=== PATIENT | male | born 1940 | race Caucasian/White ===

== ENCOUNTER → 2017-08-16 | Outpatient (CLI) | payer MEDICARE, OTHER | LOC: M RAD 09:50 | DX: Z12.2 Encounter for screening for malignant neoplasm of respiratory organs (principal); R91.8 Other nonspecific abnormal finding of lung field; F17.210 Nicotine dependence, cigarettes, uncomplicated; J44.9 Chronic obstructive pulmonary disease, unspecified; I27.81 Cor pulmonale (chronic) | CPT/HCPCS: G0297 ==

== ENCOUNTER 2018-08-17 19:21 | Inpatient (IN) | payer MEDICARE, OTHER ==
[~2018-08-17] VITALS: Ht 180.3 cm; Wt 79.5 kg
[2018-08-17] MEDS ORDERED: SPIR1CAP INH ×2 (19:43→21:04)
[2018-08-17] MEDS ORDERED: CLOB05OI TOP (19:43)
[2018-08-17] MEDS ORDERED: LEVOTAB10 PO ×2 (19:43→21:04)
[2018-08-17] MEDS ORDERED: MONT10TA2 PO ×2 (19:43→21:04)
[2018-08-17] MEDS ORDERED: SPIR1TAB34 (19:43)
[2018-08-17] MEDS ORDERED: ATOR40TA75 PO ×2 (19:43→21:02)
[2018-08-17] MEDS ORDERED: AVAP300T23 PO (19:43)
--- NOTE | 2018-08-17 20:01 | REP ---
Clinical: Acute chest pain . Comparison: 02/06/2013 . Findings: The mediastinum and cardiac silhouette are stable and within normal limits for portable technique. The lung arnold demonstrate chronic-appearing changes without acute consolidation, effusion, or pneumothorax. Skeletal structures are intact. Impression: No acute cardiopulmonary process appreciated. Electronically Signed by Иван Mcmahon MD 08/17/2018 07:53 P
[2018-08-17 20:24] LABS: BASO # 0.1 10^3/uL (0.0-0.2); BASO % 0.6 % (0.0-1.0); EOS # 0.5 10^3/uL (0.0-0.50); EOS % 4.1 % (0.0-3.0); HEMOGLOBIN 13.8 g/dl (13.5-17.5); LYMPH # 3.3 10^3/uL (1.5-4.5); LYMPH % 30.6 % (24.0-44.0); MEAN CORPUSCULAR HEMOGLOBIN 29.1 pg (27.0-33.0); MEAN CORPUSCULAR HGB CONC 32.1 g/dl (32.0-36.5); MEAN CORPUSCULAR VOLUME 90.7 fl (80.0-96.0); MONO # 0.9 10^3/uL (0.0-0.8); MONO % 8.2 % (0.0-5.0); NEUTROPHILS # 6.1 10^3/uL (1.8-7.7); NEUTROPHILS % 55.9 % (36.0-66.0); PLATELET COUNT, AUTOMATED 231 10^3/uL (150-450); RED BLOOD COUNT 4.74 10^6/uL (4.30-6.10); WHITE BLOOD COUNT 10.9 10^3/uL (4.0-10.0)
[2018-08-17 20:53] LABS: BLOOD UREA NITROGEN 33 MG/DL (7-18); CALCIUM LEVEL 8.2 MG/DL (8.8-10.2); CARBON DIOXIDE LEVEL 26 MEQ/L (21-32); CHLORIDE LEVEL 109 MEQ/L (98-107); CPK CREATINE PHOSPHOKINASE 97 U/L (39-308); CREATININE FOR GFR 1.55 MG/DL (0.70-1.30); GLOMERULAR FILTRATION RATE 46.6 (>42); GLUCOSE, FASTING 85 MG/DL (70-100); MAGNESIUM LEVEL 2.4 MG/DL (1.8-2.4); MB/CK RELATIVE INDEX 3.09 (< OR =4); POTASSIUM SERUM 3.9 MEQ/L (3.5-5.1); SODIUM LEVEL 142 MEQ/L (136-145); TROPONIN I < 0.02 NG/ML (< 0.10)
[2018-08-17] MEDS ORDERED: CLOB05OI EXT (21:02)
[2018-08-17] MEDS ORDERED: IRBE300T10 PO (21:04)
[2018-08-17] MEDS ORDERED: SPIR1TAB34 PO (21:04)
[2018-08-17] MEDS ORDERED: MOME50SP2 (21:04)
[2018-08-17] MEDS ORDERED: ARTI99.0 OU (21:04)
[2018-08-17] MEDS: LR 1,000 ML IV SCH (22:23)
[2018-08-17] MEDS: ATORVASTATIN 20 MG TAB PO SCH (22:42)
[2018-08-17] MEDS ORDERED: ALBUTEROL SULFATE 2.5 MG/0.5 ML INH NEB SOLN NEB PRN (23:00)
[2018-08-18] VITALS (11 sets, daily range): BP systolic 117–160; BP diastolic 66–89
[2018-08-18 03:39] LABS: HEMATOCRIT 39.5 % (42.0-52.0); HEMOGLOBIN 12.9 g/dl (13.5-17.5); MEAN CORPUSCULAR HEMOGLOBIN 29.4 pg (27.0-33.0); MEAN CORPUSCULAR HGB CONC 32.7 g/dl (32.0-36.5); PLATELET COUNT, AUTOMATED 208 10^3/uL (150-450); RED BLOOD COUNT 4.39 10^6/uL (4.30-6.10)
[2018-08-18 03:59] LABS: INR 1.06; PROTHROMBIN TIME 13.9 SECONDS (12.1-14.4)
[2018-08-18 04:00] LABS: PARTIAL THROMBOPLASTIN TIME 29.8 SECONDS (25.4-37.6)
[2018-08-18 04:07] LABS: BLOOD UREA NITROGEN 28 MG/DL (7-18); CALCIUM LEVEL 8.1 MG/DL (8.8-10.2); CARBON DIOXIDE LEVEL 29 MEQ/L (21-32); CHLORIDE LEVEL 110 MEQ/L (98-107); GLOMERULAR FILTRATION RATE 48.4 (>42); GLUCOSE, FASTING 89 MG/DL (70-100); MAGNESIUM LEVEL 2.3 MG/DL (1.8-2.4); POTASSIUM SERUM 3.9 MEQ/L (3.5-5.1); SODIUM LEVEL 144 MEQ/L (136-145); TROPONIN I < 0.02 NG/ML (< 0.10)
[2018-08-18] MEDS ORDERED: VANCOMYCIN HCL 1,000 MG, VIAL MATE ADAPTER 1 EACH in D5W 250 ML IV SCH (06:00)
[2018-08-18] MEDS ORDERED: HEPARIN SOD (PORCINE) 5000 UNITS/ML VIAL SC SCH (06:00)
--- NOTE | 2018-08-18 07:33 | HPE ---
DATE OF ADMISSION: 08/17/2018 CHIEF COMPLAINT: Dizziness, near syncope. HISTORY OF PRESENT ILLNESS: The patient is a 77-year-old male with significant past medical history of hypertension, chronic obstructive pulmonary disease (COPD), hyperlipidemia, who presents to the emergency room with near syncope, dizziness. He does have an event monitor in place. He has been having this issue chronically for the past several months. He was set up with an event monitor by his primary care physician. He is followed by Dr. Turpin of cardiology. The Holter monitor recorded a 6 second sinus pause during his dizziness and near syncopal episode. He denies any chest pain, shortness of breath, cough, fevers, chills, abdominal pain. He has no known cardiac history. PAST MEDICAL HISTORY: See history of present illness. PAST SURGICAL HISTORY: Cholecystectomy. Left testicle and prostatectomy. ALLERGIES: 1. PENICILLIN. 2. SULFA ANTIBIOTICS. SOCIAL HISTORY: He is a current smoker, half a pack per day. Denies alcohol or illicit drug. FAMILY HISTORY: Heart disease and cerebrovascular accident (CVA). REVIEW OF SYSTEMS: A 12 point review of systems was completed, all of which were negative except those listed in the history of present illness. VITAL SIGNS ON ADMISSION: Temperature 96.9, pulse rate of 69, respirations are 18, blood pressure 163/78, satting at 97% on room air. PHYSICAL EXAMINATION: GENERAL: Well nourished, in no apparent distress. HEAD: Normocephalic, atraumatic. EYES: Extraocular movements are intact. Pupils equal, round, reactive to light. NECK: Supple. No jugular venous pressure (JVP). LUNGS: Clear to auscultation bilaterally. No crackles, wheezes, rales or rhonchi. CARDIOVASCULAR: Regular rate and rhythm. Normal S1 and S2. No murmurs, gallops, or rubs. ABDOMEN: Soft, nontender, nondistended. Positive bowel sounds. No rebound or guarding. EXTREMITIES: No pitting edema or calf tenderness. SKIN: Intact. No rashes, lesions or breakdowns. NEUROLOGICAL EXAM: Alert and oriented times three. No focal deficits appreciated on exam. LABS AND IMAGING COMPLETED IN THE EMERGENCY ROOM: White count of 10, hemoglobin and hematocrit of 13/43, platelet count of 231. BUN and creatinine of 33/1.55, baseline creatinine is unknown. Magnesium within normal limits. Troponin negative times one. Chest x-ray showed no acute disease. ASSESSMENT/PLAN: 1. Dizziness, near syncope. Secondary to episode of sinus arrest. Will rule out ACS with serial tropes, serial EKGs, telemetry. Rule out structural heart disease with echocardiogram. Will send Lyme serology. Will check electrolytes. The patient to have a pacemaker in the morning, nothing by mouth after midnight. Will leave pacemaker at the bedside. 2. For hypertension, continue Avapro. 3. For hyperlipidemia, continue Lipitor. 4. Supportive deep vein thrombosis (DVT) prophylaxis. Heparin subcu. 5. Gastrointestinal (GI) prophylaxis. Not indicated. 6. Diet. Nothing by mouth after midnight. MTDD
[2018-08-18] MEDS: TIOTROPIUM INHALER/CAPSULE (SPIRIVA) INH SCH (08:30)
[2018-08-18] MEDS: IRBESARTAN 150 MG TAB PO SCH (09:19)
[2018-08-18] MEDS: LR 1,000 ML IV SCH (09:19)
[2018-08-18] MEDS ORDERED: FLUTICASONE PROP 0.05% NASAL SPRAY 16 GM (FLONASE) NARES ONE (13:00)
--- NOTE | 2018-08-18 14:18 | ECGEPIP ---
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 Electronically Signed On 08-18-2018 14:18:29 EST by Sebastian Turpin
--- NOTE | 2018-08-18 14:18 | CR ---
DATE OF CONSULTATION: 08/17/2018 REFERRING PHYSICIAN: Dr. Jose Ramon Milligan, emergency room physician. HISTORY OF PRESENT ILLNESS: Mr. 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 He also has hypercholesterolemia and chronic obstructive pulmonary disease (COPD) and chronic kidney disease stage III. He reports that in the past 2-3 years, he has been having recurrent near fainting lasting about 5-10 seconds that occurs without warning in any position and typically occurs 2-3 times per year. He is not able to identify any provoking factors. There is no preceding palpitations, nausea, or vomiting. Shortly after recovering from presyncope, he sometimes feels very mild nausea but no abdominal discomfort. No syncope but he has come very close to syncope. He was recently placed on a 30-day event monitor at the request of his primary care provider because of these episodes of presyncope and earlier this evening, he had a symptomatic episode of near syncope recorded 08/17/2018 at 6:08 p.m. Eastern standard time whereby he had an episode of sinus arrest approximately 5 seconds (actually 4740 ms). He was instructed to go to the emergency room for admission because he would need a pacemaker. He is not on any medications to account for sinus node dysfunction. Since he quit alcohol, he is no longer bothered by palpitations. No exertional shortness of breath. No orthopnea or PND. He has occasional cough with small amounts of yellow sputum. No hemoptysis. No active leg edema. No pain, pressure, tightness, wheezing or heaviness in the chest, neck, jaw, upper extremities with or without exertion. No intermittent claudication. 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 Systemic hypertension. Hypercholesterolemia. Chronic obstructive pulmonary disease (COPD). Sinusitis. Carotid arthrosclerosis (mild to moderate plaque on carotid ultrasound 11/28/2013). Chronic kidney disease followed by Dr. Nathan Piper, localized edema followed by Dr. Piper. Status post cholecystectomy. Prior orchiectomy, prior prostatectomy. Bilateral cataract extractions with lens implants. ADVERSE DRUG REACTIONS: PENICILLIN (hives). SULFA (nausea). RELAFEN (nausea). BACLOFEN (nausea). BACTRIM (nausea). MEDICATIONS PRIOR TO ADMISSION: - spironolactone/hydrochlorothiazide 25/25 mg times half tablet daily - irbesartan 300 mg daily - atorvastatin 40 mg daily at bedtime - Flonase - cetirizine 5 mg daily at bedtime - Singulair 10 mg daily - Spiriva one inhalation daily FAMILY HISTORY: Father of cancer. Mother had a stroke. 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 . Currently smokes up to half a pack of cigarettes a day. No alcohol. REVIEW OF SYSTEMS: Wears glasses for reading. Decreased hearing and tinnitus. Cough with occasional yellowish sputum. Environmental allergies. Low back pain and sciatica. No anxiety, panic attacks or depression. All other 10 point review of systems otherwise negative. I shall summarize the patient's noninvasive cardiac testing. Treadmill exercise stress test, 07/20/2016 showed patient completing 10 minutes of standard Yo protocol achieving 13 METs and achieving a maximum heart rate of 134 BPM corresponding to 77% of age-predicted maximum. ECG portion was inconclusive due to failure to attain 85% of maximum age-predicted heart rate, but no ischemic changes were seen at the observed heart rate. The test was limited by dyspnea and leg fatigue. No chest pain or chest discomfort. Echocardiogram Doppler 07/19/2016 showed normal size of the aortic root at the level of the sinuses of Valsalva and proximal ascending aorta. Normal LV systolic function with LVEF 60-65% by visual estimate without regional wall motion abnormalities. Normal LV diastolic function for age. Mild left atrial dilatation by visual assessment. Mild aortic valve sclerosis of a 3-cusp aortic valve. Holter monitor 07/27/2016 showed frequent isolated PVCs (3938 isolated PVCs). No ventricular tachycardia or ventricular runs. Heart rate at that time ranged from 48-118 BPM with an average heart rate of 70 BPM. PHYSICAL EXAMINATION: Pleasant, elderly man who appears his chronologic age who is not in any respiratory distress. Appears to be normal body weight. . Height 71 inches. Weight 79.55 kg. BMI 24.5. Temperature 96.9. Pulse 58 (regular 810), respiratory rate 18, blood pressure 136/77 left arm sitting, oxygen saturation 96% on room air. No conjunctiva, pallor, scleral icterus or exanthematous. Multiple missing teeth and some dental fillings present. Oral mucosal is moist and without pallor or stenosis. Jugular venous pulsations were at 5 cm. Trachea midline. No palpable thyroid. No clubbing, nail bed cyanosis, or splinter hemorrhages. No skin lesion, skin pallor or icterus. Oriented to person, place and time. Mood and affect normal. Curvature of the spine normal. Gait was not tested as this patient is currently on bed rest because of presyncope and sinus arrest. Gross motor strength and tone are normal. No abnormal muscle atrophy, fasciculations, or tremors. Respiratory expansion effort was good. No crackles. Mild prolongation of expiration and some faint wheezes were present. No dullness to percussion. No palpable apex beat. No left parasternal heaves, thrills, or palpable heart sounds. First and second heart sounds are normal. No S3 or S4 or murmurs appreciated. Carotids are normal in volume and contour and without bruits. No palpable abdominal aorta. No abdominal bruits. Femoral pulses normal. Pedal pulses normal. No peripheral edema. No varicose veins. Abdomen was soft, nontender with normal bowel sounds. No hepatosplenomegaly or organomegaly. Liver span 12 cm in right midclavicular line. Stool for occult blood not indicated. INVESTIGATIONS: Laboratory work 08/17/2018 at 2013 hours is reviewed: WBC 10.9, hemoglobin 13.8, hematocrit 43.0, platelets 231. Sodium 142, potassium 3.9, chloride 109, CO2 26, BUN 33, creatinine 1.55. Estimated glomerular filtration rate 46.6. Glucose 85. Magnesium 2.4. CPK 97. CK-MB 3.0. Troponin I less than 0.02. I have independently visualized the patient's portable AP sitting chest x-ray acquired 08/17/2018 at 7:46 p.m. Cardiac silhouette appears to be of normal size and configuration despite the portable technique. Enlarged pulmonary arteries. No pulmonary vascular redistribution. No interstitial or alveolar edema. No pleural effusions. Chronic appearing fibrotic changes in the lung arnold. Electrocardiogram 08/17/2018 at 1958 hours shows sinus rhythm, 65 BPM, two way for the PVCs. Normal NV interval, otherwise within normal limits. ASSESSMENT AND PLAN: 1. Sick sinus syndrome symptomatic with recurrent presyncope with documentation of a symptomatic 5 second sinus arrest earlier today on a 30-day event monitor. He is not on any negative chronotropic agents to account for the sinus node dysfunction. He meets criteria for implantation of a permanent dual chamber pacemaker. The implantation of a permanent dual chamber pacemaker was explained to the patient including the option of no pacemaker. The option of no pacemaker runs the risk of syncope and its consequences. Risks of pacemaker implantation were explained to the patient as it appears on the consent form including, but not all inclusive, infection (1%), pneumothorax (1%), bleeding, poor wound healing, adverse drug reaction, cardiac arrhythmias, lead dislodgement, cardiac perforation with cardiac tamponade (08/999). Patient was agreeable and signed consent form. The plan will be to implant a permanent dual chamber pacemaker tomorrow. 2. Systemic hypertension. Blood pressure currently controlled. 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 I will hold tomorrow's spironolactone/hydrochlorothiazide while he is n.p.o. 3. Frequent PVCs. Patient no longer consumes alcohol. His potassium and magnesium levels are normal. He is known to have normal LV systolic function and no evidence of myocardial ischemia. He is no longer bothered by palpitations. Stable. 4. Hypercholesterolemia. Patient will continue on his usual dose of atorvastatin. I recommend a low fat, whole fruit, plant based diet. MTDD
[2018-08-18] MEDS ORDERED: MUPIROCIN 2% OINT 22 GM TUBE As Ordered ONE (14:37)
[2018-08-18] MEDS ORDERED: LIDOCAINE 1% SDV INJ 30 ML VIAL As Ordered ONE (14:37)
[2018-08-18] MEDS ORDERED: ISOVUE-300 61% 50ML VIAL (Q9967) As Ordered ONE (14:37)
[2018-08-18] MEDS ORDERED: VANCOMYCIN 1000 MG/20 ML VIAL (J3370) As Ordered ONE (14:38)
[2018-08-18] MEDS ORDERED: fentaNYL 100 MCG/2 ML INJECTION (J3010) As Ordered ONE (17:45)
[2018-08-18] MEDS ORDERED: MIDAZOLAM INJ 2 MG/2 ML VIAL (J2250) As Ordered ONE (17:45)
[2018-08-18] MEDS ORDERED: LIDOCAINE 2% INJ 100 MG/5 ML SDV (FOR ANES.) As Ordered ONE (17:45)
[2018-08-18] MEDS ORDERED: PROPOFOL 200 MG/20 ML VIAL As Ordered ONE (17:45)
[2018-08-18] MEDS ORDERED: ACETAMINOPHEN TAB 650MG DOSE (2X325MG) PO PRN (19:00)
[2018-08-18] MEDS ORDERED: ONDANSETRON 4MG/2ML VIAL (J2405) IV PRN (19:00)
[2018-08-18] MEDS ORDERED: PERCOCET 5MG/325MG TAB PO PRN (19:00)
[2018-08-18] MEDS ORDERED: LR 1,000 ML IV SCH (19:00)
[2018-08-18] MEDS ORDERED: PERCOCET 5MG/325MG TAB As Ordered ONE (19:15)
[2018-08-18] MEDS: ATORVASTATIN 20 MG TAB PO SCH (20:37)
[2018-08-18] MEDS: ASCORBIC ACID 250 MG TAB PO SCH (20:39)
[2018-08-18] MEDS ORDERED: FLUTICASONE PROP 0.05% NASAL SPRAY 16 GM (FLONASE) NARES SCH (21:00)
--- NOTE | 2018-08-18 21:16 | REP ---
Clinical: Pacemaker placement. Technique: Intraoperative fluoroscopic imaging using C-arm technique. Findings: 11 images demonstrate satisfactory placement of dual lead pacemaker with leads in the right atrium and right ventricle. Total fluoroscopic time 5 minutes 29 seconds. Impression: Status post satisfactory dual lead pacemaker placement. Electronically Signed by Иван Mcmahon MD 08/18/2018 09:08 P
--- NOTE | 2018-08-18 23:24 | IPNPDOC ---
Text Note Date of Service The patient was seen on 08/18/18. NOTE Subjective: patient seen at bedside this am . Awaiting to go for PPM placement. Did offer any complaints. No dizziness or light headednes. he said that he had this problem for the past 5 to 10 years but never concerning enough to tell his PMD hoever last few months he felt it was more and in one episode he thought that he may be having a stroke so told his PMD about this . And as part of stroke work up he had a holter which picked up the abnormal cardiac rhythm which has now necesiated in the plcement of PPM. PHYSICAL EXAMINATION: VITALS: As below. GENERAL: Well nourished, in no apparent distress. HEAD: Normocephalic, atraumatic. EYES: Extraocular movements are intact. Pupils equal, round, reactive to light. NECK: Supple. No jugular venous pressure (JVP). LUNGS: Clear to auscultation bilaterally. No crackles, wheezes, rales or rhonchi. CARDIOVASCULAR: Regular rate and rhythm. Normal S1 and S2. No murmurs, gallops, or rubs. ABDOMEN: Soft, nontender, nondistended. Positive bowel sounds. No rebound or guarding. EXTREMITIES: No pitting edema or calf tenderness. SKIN: Intact. No rashes, lesions or breakdowns. NEUROLOGICAL EXAM: Alert and oriented times three. No focal deficits appreciated on exam. Labs and radiology reviewed ASSESSMENT and PLAN: The patient is a 77-year-old male with significant past medical history of hypertension, chronic obstructive pulmonary disease (COPD),Asthma, hyperlipidemia, Smoker who presents to the emergency room with near syncope, dizziness. He does have an event monitor in place. He has been having this issue chronically for the past several months. He was set up with an event monitor by his primary care physician. He is followed by Dr. Turpin of cardiology. The Holter monitor recorded a 6 second sinus pause during his dizziness and near syncopal episode. PPateint needs urgent Pacemaker placement so he was admitted for PPM. Dizziness, near syncope. Secondary to episode of sinus arrest. Workup for ACS is negative. Lyme serology in pending. PPM today by Dr Turpin. For hypertension, continue Avapro, HCTZ and Spironolactone For hyperlipidemia, continue Lipitor. COPD and Asthma continue spiriva and montelukast. Smoker: counselled about quitting . he says is has been cutting down and no down to 1/2 pack a day and he is trying. offerd nicotine gums, patches he said will ask for them if he needs them. Supportive deep vein thrombosis (DVT) prophylaxis. Heparin subcu. VS,Fishbone, I+O VS, Fishbone, I+O Laboratory Tests 08/18/18 03:34 Red Blood Count 4.39, Mean Corpuscular Volume 90.0, Mean Corpuscular Hemoglobin 29.4, Mean Corpuscular Hemoglobin Concent 32.7, Red Cell Distribution Width 13.2, Calcium Level 8.1 L Vital Signs Date Time Temp Pulse Resp B/P (MAP) Pulse Ox O2 Delivery O2 Flow Rate FiO2 08/18/18 20:00 98.7 77 18 160/76 (104) 98 2.0 08/18/18 06:30 Room Air I&O- Last 24 Hours up to 6 AM 08/18/18 06:00 Intake Total 400 ml Balance 400 ml SAMMY MARIE MD Aug 18, 2018 23:24
[2018-08-19] VITALS: BP 149/65
[2018-08-19 04:00] VITALS: BP 134/68
[2018-08-19 06:00] LABS: HEMATOCRIT 41.7 % (42.0-52.0); HEMOGLOBIN 13.8 g/dl (13.5-17.5); MEAN CORPUSCULAR HEMOGLOBIN 29.6 pg (27.0-33.0); MEAN CORPUSCULAR HGB CONC 33.1 g/dl (32.0-36.5); MEAN CORPUSCULAR VOLUME 89.3 fl (80.0-96.0); PLATELET COUNT, AUTOMATED 212 10^3/uL (150-450); RED BLOOD COUNT 4.67 10^6/uL (4.30-6.10); WHITE BLOOD COUNT 11.1 10^3/uL (4.0-10.0)
[2018-08-19 06:30] LABS: CALCIUM LEVEL 7.9 MG/DL (8.8-10.2); CREATININE FOR GFR 1.34 MG/DL (0.70-1.30); GLOMERULAR FILTRATION RATE 55.2 (>42); MAGNESIUM LEVEL 2.1 MG/DL (1.8-2.4); POTASSIUM SERUM 4.5 MEQ/L (3.5-5.1)
[2018-08-19 08:00] VITALS: BP 122/74
--- NOTE | 2018-08-19 08:04 | REP ---
Status post pacemaker placement. Technique: PA and lateral. Comparison: 08/17/2018. Findings: The pacemaker is in satisfactory position and there is no evidence for pneumothorax. Mediastinum including cardiac silhouette appears normal. Mild atelectasis at the left mid lung zone as well as small left pleural reaction and basilar atelectasis. No significant effusion. Skeletal structures are intact. Impression: 1. Status post pacemaker. No pneumothorax. 2. Mild left midline and basilar atelectasis and possible small pleural reaction. Electronically Signed by Иван Mcmahon MD 08/19/2018 07:56 A
[2018-08-19 08:28] VITALS: BP 122/74
[2018-08-19] MEDS: ASCORBIC ACID 250 MG TAB PO SCH (08:28)
[2018-08-19] MEDS: IRBESARTAN 150 MG TAB PO SCH (08:28)
[2018-08-19] MEDS ORDERED: hydroCHLOROthiazide 12.5 MG CAPSULE PO SCH (09:00)
[2018-08-19] MEDS ORDERED: SPIRONOLACTONE 12.5MG PER 1/2 TABLET PO SCH (09:00)
[2018-08-19] MEDS ORDERED: MONTELUKAST 10 MG TAB PO SCH (09:00)
[2018-08-19] MEDS: TIOTROPIUM INHALER/CAPSULE (SPIRIVA) INH SCH (09:48)
--- NOTE | 2018-08-19 09:49 | ECGEPIP ---
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
[2018-08-19] MEDS ORDERED: ASCO25TA PO ×2 (11:19→11:46)
--- NOTE | 2018-08-19 11:41 | RO ---
DATE OF PROCEDURE: 08/18/2018 INDICATION: Sick sinus syndrome with symptomatic bradycardia (sinus arrest times 5 seconds). PREPROCEDURE DIAGNOSIS: Sick sinus syndrome with symptomatic bradycardia (sinus arrest times 5 seconds). FINDINGS: Sick sinus syndrome with symptomatic bradycardia (sinus arrest times 5 seconds). PROCEDURE PERFORMED: Implantation of a permanent dual chamber pacemaker ([employer]). SURGEON: Sebastian Turpin MD BENCH SHEAR OPERATOR: None. ANESTHESIA: Lidocaine 1% local/monitored anesthetic care. SPECIMENS: None. BIOPSIES: None. ESTIMATED BLOOD LOSS: 5 mL. COMPLICATIONS: None. DESCRIPTION OF OPERATION: The patient was prepped and draped over the left pectoral region. 3M Ioban film was applied. Lidocaine 1% was used for local anesthetic. The left subclavian venogram was performed using a solution containing three parts Isovue to one part normal saline and was performed using 20 mL of this solution injected via a peripheral IV in the left forearm. This was used in real-time to obtain percutaneous extrathoracic left subclavian vein assess with a micropuncture needle. This was then guidewire exchanged and a guidewire that came with one of the 6-Brazilian introducers. Incision approximately 2.5 inches in length was made with a PEAK PlasmaBlade 1 cm below the entry site of the guidewire and approximately parallel to the left clavicle. The PEAK Plasma blade was used to get through the fatty layer and the fibrous Andi's fascia. The pacemaker pocket was then formed in a caudal direction using blunt dissection using two fingers to separate the prepectoral fascia from the Andi's fascia to create the pacemaker pocket. Next, the guidewire was pulled through the skin at the incision site. Next, I used a separate micropuncture needle to gain a separate venous access at the level of the pectoral muscle a bit more lateral to the first guidewire using the first guidewire as a fluoroscopic marker. This was then guidewire exchanged for the other guidewire that came with the other #6-Brazilian sheath. Next, the #6-Brazilian sheath with introducer was placed over the more lateral of the guidewires and was used for venous access for the right ventricular lead. The right ventricle lead was secured into the right ventricle apex position with the aid of fluoroscopic guidance. Secured with a total of 10 turns. This position was found to be electrically and anatomically satisfactory and without diaphragm stimulation at 10 volts high output. The 6-Frech sheath was then broken apart and removed. The ventricular lead was secured to the pectoral muscle using two individual sutures consisting of #0 Vicryl to secure to the pectoral muscle. Next, another #6-Brazilian sheath was placed over the more medial of the guidewires and was used for vein access for the right atrial leads. The right atrial lead was placed into the right atrial appendage position with the assistance of a preformed J-stylet. It was secured with a total of 10 turns. This position was found to be electrically and anatomically satisfactory. No diaphragm stimulation could be palpated on either side at 10 volts high output pacing. The 6-Brazilian sheath was removed and a right atrial lead was secured to the pectoral muscle using two individual sutures consisting #0 Ethibond to secure the tie down sleeve to the muscle. Next, another #0 Ethibond suture was placed to the pectoral muscle to serve as the tie downs for the pacemaker pulse generator. I then took a medium size Tyrx antimicrobial envelop and cut it in to four pieces which were placed into the floor of the pacemaker pocket. Next, the terminal pins of the ventricle and atrial leads were plugged into their respective ports in the header of the pacemaker pulsed generator and each one was secured by tightening the set screws with the Hex screwdriver. The excess lead material was then coiled underneath the pacemaker pulse generator and placed along with the pacemaker pulse generator into the pacemaker pocket. The pacemaker pulse generator was secured to the pectoral muscle with the previously placed #0 Ethibond suture. The deep layer was closed using individual sutures consisting of #2-0 Vicryl. One additional #3-0 Vicryl suture was used to help approximate the more superficial layer along the medial aspect of the incision. The skin was closed using juan. A dressing was then applied consisting of Bactroban ointment followed by telfa followed by a pressure dressing applied with foam tape. Left arm sling was placed prior to the patient leaving the operating room. A final fluoroscopic cine loop of the pacemaker system was obtained at the end of the case prior to the patient leaving the operating room. The pacemaker pulse generator implanted was a [employer] Edora 8 DR-T with serial #[id number]. The right atrial lead implanted was a [employer] Solia F 45 with serial #[id number]. Final testing in the operating for the right atrial lead showed capture threshold of 0.6 volts and 0.4 milliseconds with P wave amplitude of 5.4 millivolts and lead impedance of 487 ohms in bipolar configuration. The right lead implanted was a [employer] Solia F 53 with serial #[id number]. Final testing in bipolar configuration for the right ventricle lead showed capture threshold of 0.5 volts at 0.4 milliseconds with R wave amplitude of 11.4 millivolts and lead impedance of 604 ohms.
[2018-08-19 12:00] VITALS: BP 145/76
[2018-08-19 16:13] LABS: Lyme Disease IgG/IgM Antibodie <0.91 ISR (0.00-0.90); Lyme Disease IgM Ab Quantitati <0.80 index (0.00-0.79)
--- NOTE | 2018-08-20 07:21 | ECHO ---
DATE OF STUDY: 08/18/2018 REFERRING PHYSICIAN: Tuesday INDICATION: Abnormal ECG. HEIGHT: 71 inches. WEIGHT: 80 kg. 2-D MEASUREMENTS: Aortic root: 3.8 cm Aortic annulus: 2.1 cm Left atrium: 4.7 cm Ventricular septum: 1.17 cm Posterior wall: 1.15 cm Left ventricle diastole: 5.1 cm Inferior vena cava: 2.1 cm DOPPLER MEASUREMENTS: Trace aortic regurgitation No aortic stenosis Aortic valve velocity: 123 cm/sec LVOT velocity: 108 cm/sec LVOT VTI: 23.7 cm Trace mitral regurgitation Mitral E velocity: 61.6 cm/sec Mitral A velocity: 48.0 cm/sec Mitral deceleration time: 257 ms Trace tricuspid regurgitation Estimated right ventricular systolic pressure 28 mmHg assuming a right atrial pressure of 5 mmHg MITRAL ANNULAR TISSUE DOPPLER E prime septal: 8.9 cm/sec E prime lateral: 11.0 cm/sec DESCRIPTION: The rhythm was sinus. Image quality was good. No pericardial effusion. This was a 2-D, M-mode, color flow Doppler and pulse wave Doppler examination and included mitral annular tissue Doppler. CONCLUSIONS: 1. Moderate focal thickening and focal calcific deposits, especially involving the posterior cusps. No aortic stenosis. Trace aortic regurgitation. 2. Mild dilatation of the aortic root at the level of the sinus of Valsalva (3.8 cm). 3. Normal left ventricle internal dimensions and wall thickness. Normal regional LV wall motion and wall thickening. Normal LV systolic function. LVEF 69% (3D). Normal LV diastolic function for age. 4. Moderate left atrial dilatation.
--- NOTE | 2018-08-21 00:42 | DS.PDOC ---
Discharge Summary General Date of Admission Aug 17, 2018 at 22:41 Date of Discharge 08/19/18 Attending Physician: SAMMY MARIE MD Specialist/Consultants Involve: Sebastian Turpin Discharge Summary PROCEDURES PERFORMED DURING STAY: Permanent Pacemaker placement. DISCHARGE DIAGNOSES: Sinus Arrest causing dizziness and presyncope COPD Hypertension Hyperlipidemia COMPLICATIONS/CHIEF COMPLAINT: Sinus Arrest. HISTORY OF PRESENT ILLNESS: See History and physical HOSPITAL COURSE: The patient is a 77-year-old male with significant past medical history of hypertension, chronic obstructive pulmonary disease (COPD),Asthma, hyperlipidemia, Smoker who presents to the emergency room with near syncope, dizziness. He does have an event monitor in place. He has been having this issue chronically for the past several months. He was set up with an event monitor by his primary care physician. He is followed by Dr. Turpin of cardiology. The Holter monitor recorded a 6 second sinus pause during his dizziness and near syncopal episode. Patient needed urgent Pacemaker placement so he was admitted for PPM. Dizziness, near syncope. Secondary to episode of sinus arrest. Workup for ACS is negative. Lyme serology iis negative Had PPM placement on 08/18/18 For hypertension, continue Avapro, HCTZ and Spironolactone For hyperlipidemia, continue Lipitor. COPD and Asthma continue Spiriva and montelukast. Smoker: counselled about quitting . he says is has been cutting down and no down to 1/2 pack a day and he is trying. offerd nicotine gums, patches he said will ask for them if he needs them. DISCHARGE MEDICATIONS: Please see below. ALLERGIES: Please see below. PHYSICAL EXAMINATION ON DISCHARGE: VITAL SIGNS: Please see below. GENERAL: Well nourished, in no apparent distress. HEAD: Normocephalic, atraumatic. EYES: Extraocular movements are intact. Pupils equal, round, reactive to light. NECK: Supple. No jugular venous pressure (JVP). LUNGS: Clear to auscultation bilaterally. No crackles, wheezes, rales or rhonchi. CARDIOVASCULAR: Regular rate and rhythm. Normal S1 and S2. No murmurs, gallops, or rubs. ABDOMEN: Soft, nontender, nondistended. Positive bowel sounds. No rebound or guarding. EXTREMITIES: No pitting edema or calf tenderness. SKIN: Intact. No rashes, lesions or breakdowns. NEUROLOGICAL EXAM: Alert and oriented times three. No focal deficits appreciated on exam. LABORATORY DATA: Please see below. ACTIVITY: [As tolerated]. DIET: As tolerated DISPOSITION: 01 Home, Self-Care. DISCHARGE INSTRUCTIONS: Pacemaker incision check and staple removal in Dr Turpin's office on 08/25/[address] Turpin for pacemaker check in 4 weeks Keep incision dry till 24 hours after all juan are removed Change Dressing with dry sterile gauge and paper tape if dressing becomes soiled. Do not raise hand above 90 degrees for 1 month No driving for 1 week follow up PMD in 2 weeks. DISCHARGE CONDITION: [Stable]. TIME SPENT ON DISCHARGE: Greater than 30 minutes. Vital Signs/I&Os Vital Signs Date Time Temp Pulse Resp B/P (MAP) Pulse Ox O2 Delivery O2 Flow Rate FiO2 08/19/18 12:00 98.6 62 19 145/76 (99) 95 08/19/18 04:00 2.0 08/18/18 06:30 Room Air Discharge Medications Scheduled (Mometasone Furoate) 50 Mcg/Act Spr, 2 SPRAYS NA QHS, (Reported) Ascorbic Acid (Vitamin C) 250 Mg Tab, 250 MG PO BID Atorvastatin Calcium (Atorvastatin Calcium) 40 Mg Tab, 40 MG PO QHS, (Reported) Hctz/Spironolactone (Spironolactone/Hydrochlor 25-25 mg) 1 Ea Tab, 0.5 TAB PO DAILY, (Reported) Irbesartan (Irbesartan) 300 Mg Tab, 300 MG PO DAILY, (Reported) Levocetirizine Hydrochloride (Levocetirizine Dihydrochl) 5 Mg Tab, 5 MG PO QHS, (Reported) Montelukast Sodium (Montelukast Sodium) 10 Mg Tab, 10 MG PO DAILY, (Reported) Tiotropium [place] Monohydrate (Spiriva Handihaler) 18 Mcg Cap, 1 INHALATION INH DAILY, (Reported) Scheduled PRN Artificial Tears (Artificial Tears) 1.4 % Minda, 1 DROP OU QID PRN for DRY EYES, (Reported) Clobetasol Propionate (Clobetasol Propionate) 0.05 % Oin, 1 DOSE EXT DAILY PRN for RASH, (Reported) USES ON LEGS NEEDED FOR RASH Allergies Coded Allergies: Penicillins (Verified Allergy, Unknown, 08/17/18) Sulfa Antibiotics (Verified Allergy, Unknown, 08/17/18) SAMMY MARIE MD Aug 21, 2018 00:42
--- NOTE | 2018-08-21 12:52 | REP ---
Clinical: Status post pacemaker placement. Comparison: 08/17/2018. Findings: Dual lead pacemaker has been placed. Leads are in satisfactory position. The cardiac silhouette is normal. Lung arnold demonstrate chronic interstitial changes. Trace atelectasis in the left mid lung zone cannot be excluded. No consolidation. No effusion. No pneumothorax. Skeletal structures intact. Impression: Satisfactory dual lead pacemaker placement. No pneumothorax. Electronically Signed by Иван Mcmahon MD 08/18/2018 06:55 P
== END 2018-08-19 13:19 | disposition home or self-care (01) | DRG 244 ==
LOC: M ED 19:21 → M ED INP 22:41 → M ICU 08-18 07:35
PROVIDERS: ADMIT Internal Medicine; ATTEND Internal Medicine Nephrology
PROC: 0JH606Z Insertion of Pacemaker, Dual Chamber into Chest Subcutaneous Tissue and Fascia, Open Approach (ICD-10-PCS; 2018-08-18)
PROC: 02HK3JZ Insertion of Pacemaker Lead into Right Ventricle, Percutaneous Approach (ICD-10-PCS; 2018-08-18)
PROC: 02H63JZ Insertion of Pacemaker Lead into Right Atrium, Percutaneous Approach (ICD-10-PCS; principal; 2018-08-18 16:00)
DX: I49.5 Sick sinus syndrome (principal); I45.5 Other specified heart block; J44.9 Chronic obstructive pulmonary disease, unspecified; I12.9 Hypertensive chronic kidney disease with stage 1 through stage 4 chronic kidney disease, or unspecified chronic kidney disease; N18.3 Chronic kidney disease, stage 3 (moderate); E78.5 Hyperlipidemia, unspecified; F17.200 Nicotine dependence, unspecified, uncomplicated; Z79.899 Other long term (current) drug therapy; Z88.0 Allergy status to penicillin; Z88.2 Allergy status to sulfonamides

== ENCOUNTER → 2019-08-21 | Outpatient (CLI) | payer MEDICARE, OTHER ==
[~2019-08-21] MED LIST: ATOR40TA75 PO; AVAP300T23 PO; CLOB05OI EXT; CLOB05OI TOP; IRBE300T7 PO; LEVOTAB10 PO; MOME50SP2; MONT10TA4 PO; POLYOPD OU; SPIR1CAP INH; SPIR1TAB34; SPIR1TAB34 PO; VITA1TAB23 PO
--- NOTE | 2019-08-21 16:10 | REP ---
CT chest without contrast: Low-dose screening exam. History: Nicotine dependence. Comparison CT study August 16, 2017. CT findings: The previously noted subpleural nodule in the left lower lobe is again seen unchanged and 4 mm in diameter. This is visible on today's study on page 41 of 110 in series 201. There is a tiny 3 mm nodular opacity in the left lower lobe visible on page 70. This is unchanged from the 2018 prior study as well. There has been no change in the size or appearance of the pleural-based nodule in the right upper lobe in the interval since the prior study. This is seen on today's study on page 24 of 110. Just above this in the right upper lobe there is a 3 mm nodular opacity in the right upper lobe, page 21. This is unchanged as well from the prior study. In the right upper lobe near the apex, there is a stable 3 mm nodular opacity on page 14. However, there are two new noncalcified pulmonary nodules in the right upper lobe. On page 20, there is a new right upper lobe nodule measuring 7 mm in greatest diameter. On page 30, there is a somewhat spiculated appearing 10 x 7 mm new nodule in the right upper lobe as well. Pacemaker is seen in place. No other significant abnormality. Impression: There are two new noncalcified pulmonary nodules in the right upper lobe and several stable bilateral pulmonary nodules. The largest of the new nodules is 10 mm in greatest diameter. This merits further evaluation. Lung RADS category 4A suspicious findings. 3-month follow-up chest CT versus PET-CT can be considered. Electronically Signed by Brayden Joyce MD 08/21/2019 06:02 P
== END ==
LOC: M RAD 11:27
PROVIDERS: ATTEND Family Medicine
DX: Z12.2 Encounter for screening for malignant neoplasm of respiratory organs (principal); F17.210 Nicotine dependence, cigarettes, uncomplicated

== ENCOUNTER → 2019-12-18 | Outpatient (CLI) | payer MEDICARE, OTHER ==
--- NOTE | 2019-12-18 08:47 | REP ---
Clinical: Follow up pulmonary nodules Technique: Axial noncontrast images from the thoracic inlet to the upper abdomen with coronal and sagittal re-formations. Comparison: 08/21/2019. Findings: Chronic emphysematous changes and chronic scattered scarring / interstitial disease along with small stable nodules are again identified and essentially unchanged compared to 08/16/2017. The relatively new nodules seen on 08/21/2019 examination in the right upper lobe remain unchanged based on short-term follow-up. No new area of consolidation, nodule or mass. No pleural effusion. No pneumothorax. Noncalcified material in the left lingular bronchus (image 46) likely represents inspissated sputum. The mediastinum demonstrates stable atherosclerotic changes to the thoracic aorta and coronary arteries without aortic aneurysm or cardiomegaly. No pericardial effusion. Dual lead pacemaker in satisfactory position. Surrounding musculoskeletal structures are intact. Limited upper abdomen demonstrates normal bilateral adrenal glands. Impression: 1. Chronic emphysematous changes with scattered scarring and few scattered nodules remains stable. Consider 6-9 month follow-up examination to confirm stability of the more recently identified nodules based on 08/21/2019 examination. 2. Small amount of suspected inspissated material/sputum in the left lingular bronchus. Clinical correlation is recommended. Electronically Signed by Иван Mcmahon MD 12/18/2019 08:39 A
== END ==
LOC: M RAD 08:07
PROVIDERS: ATTEND Internal Medicine Pulmonary Disease
DX: R91.8 Other nonspecific abnormal finding of lung field (principal)

== ENCOUNTER → 2020-01-09 | Outpatient (CLI) | payer MEDICARE, OTHER ==
[~2020-01-09] MED LIST changes: +ASCO250T20 PO; -VITA1TAB23 PO
== END ==
LOC: M LABSMTC 11:01
PROVIDERS: ATTEND Anesthesiology
DX: Z01.818 Encounter for other preprocedural examination (principal); Z11.59 Encounter for screening for other viral diseases; Z20.828 Contact with and (suspected) exposure to other viral communicable diseases

== ENCOUNTER 2020-01-21 12:30 | Day surgery (SDC) | payer MEDICARE, OTHER ==
[2020-01-21] MEDS ORDERED: propofoL 200 MG/20 ML VIAL As Ordered ONE ×2 (14:18→14:33)
[2020-01-21] MEDS ORDERED: ePHEDrine SULFATE 25 MG/5 ML(5MG/ML) SYRINGE As Ordered ONE (14:18)
--- NOTE | 2020-02-27 11:27 | ROOR ---
Patient Name: Devang Collado Procedure Date: 01/21/2020 1:51 PM Date of : 1940 Age: 79 Room: [facility] Gender: Male Note Status: Dope Mixer Override Procedure: Total Colonoscopy to Cecum + Cold Snare Polypectomy + Hemoclips Indications: High risk colon cancer surveillance: Personal history of colonic polyps, Last colonoscopy: 2014 Providers: Joe Alcocer MD Referring MD: Lázaro Mariscal MD Requesting Provider: Medicines: Monitored Anesthesia Care Complications: No immediate complications. Procedure: Pre-Anesthesia Assessment: - The heart rate, respiratory rate, oxygen saturations, blood pressure, adequacy of pulmonary ventilation, and response to care were monitored throughout the procedure. The Colonoscope was introduced through the anus and advanced to the cecum, identified by appendiceal orifice and ileocecal valve. The colonoscopy was performed without difficulty. The patient tolerated the procedure well. The quality of the bowel preparation was excellent. Findings: The perianal and digital rectal examinations were normal. Non-bleeding internal hemorrhoids were found during retroflexion. The hemorrhoids were small and Grade I (internal hemorrhoids that do not prolapse). Multiple small and large-mouthed diverticula were found in the recto-sigmoid colon, sigmoid colon and descending colon. A small polyp was found in the cecum. The polyp was sessile. The polyp was removed with a cold snare. Resection and retrieval were complete. To prevent bleeding after the polypectomy, one hemostatic clip was successfully placed (MR conditional). There was no bleeding at the end of the procedure. A small polyp was found at 40 cm proximal to the anus. The polyp was sessile. The polyp was removed with a cold snare. Resection and retrieval were complete. Multiple sessile polyps were found in the rectum. The polyps were small in size. These polyps were removed with a cold snare. Resection and retrieval were complete. To prevent bleeding after the polypectomy, one hemostatic clip was successfully placed (MR conditional). There was no bleeding at the end of the procedure. The exam was otherwise without abnormality on direct and retroflexion views. Impression: - Non-bleeding internal hemorrhoids. - Diverticulosis in the recto-sigmoid colon, in the sigmoid colon and in the descending colon. - One small polyp in the cecum, removed with a cold snare. Resected and retrieved. Clip (MR conditional) was placed. - One small polyp at 40 cm proximal to the anus, removed with a cold snare. Resected and retrieved. - Multiple small polyps in the rectum, removed with a cold snare. Resected and retrieved. Clip (MR conditional) was placed. - The examination was otherwise normal on direct and retroflexion views. - The exam was otherwise normal to the cecum. Recommendation: - Patient has a contact number available for emergencies. The signs and symptoms of potential delayed complications were discussed with the patient. Return to normal activities tomorrow. Written discharge instructions were provided to the patient. - High fiber diet. - Discharge patient to home. - Continue present medications. - Await pathology results. - Telephone GI clinic for pathology results in 1 week. - Repeat colonoscopy for surveillance based on pathology results. - The findings and recommendations were discussed with the patient. Joe Alcocer MD Joe Alcocer MD 01/21/2020 2:39:50 PM Number of Addenda: 0 Note Initiated On: 01/21/2020 1:51 PM Estimated Blood Loss: Estimated blood loss: none.
== END 2020-01-21 15:10 | disposition home or self-care (01) ==
LOC: M OPP 12:30
PROVIDERS: ATTEND Internal Medicine Gastroenterology
DX: Z12.11 Encounter for screening for malignant neoplasm of colon (principal); Z86.010 Personal history of colon polyps; Z80.0 Family history of malignant neoplasm of digestive organs; D12.0 Benign neoplasm of cecum; D12.6 Benign neoplasm of colon, unspecified; K62.1 Rectal polyp; K64.8 Other hemorrhoids; K57.30 Diverticulosis of large intestine without perforation or abscess without bleeding; F17.210 Nicotine dependence, cigarettes, uncomplicated; Z79.899 Other long term (current) drug therapy; Z88.0 Allergy status to penicillin; Z88.1 Allergy status to other antibiotic agents; Z95.810 Presence of automatic (implantable) cardiac defibrillator

== ENCOUNTER → 2020-05-19 | Outpatient (CLI) | payer MEDICARE, OTHER ==
[~2020-05-19] MED LIST changes: -MONT10TA4 PO; +MONT5TAB2 PO
[2020-05-19 18:44] LABS: ALBUMIN 3.7 GM/DL (3.2-5.2); CALCIUM LEVEL 9.3 MG/DL (8.8-10.2); CREATININE FOR GFR 1.87 MG/DL (0.70-1.30); GLOMERULAR FILTRATION RATE 37.4 (>42); PHOSPHORUS LEVEL 3.5 MG/DL (2.5-4.9); POTASSIUM SERUM 4.7 MEQ/L (3.5-5.1)
== END ==
LOC: M WUC 10:43
PROVIDERS: ATTEND Internal Medicine Cardiovascular Disease
DX: R60.0 Localized edema (principal); I11.9 Hypertensive heart disease without heart failure

== ENCOUNTER → 2020-05-29 | Outpatient (CLI) | payer MEDICARE, OTHER ==
[2020-05-29 16:30] LABS: ALBUMIN 3.4 GM/DL (3.2-5.2); CALCIUM LEVEL 8.8 MG/DL (8.8-10.2); CREATININE FOR GFR 1.78 MG/DL (0.70-1.30); GLOMERULAR FILTRATION RATE 39.5 (>42); PHOSPHORUS LEVEL 2.6 MG/DL (2.5-4.9); POTASSIUM SERUM 4.6 MEQ/L (3.5-5.1)
== END ==
LOC: M WUC 11:27
PROVIDERS: ATTEND Internal Medicine Cardiovascular Disease
DX: N19 Unspecified kidney failure (principal); I11.9 Hypertensive heart disease without heart failure

== ENCOUNTER → 2020-07-03 | Outpatient (CLI) | payer MEDICARE, OTHER ==
--- NOTE | 2020-07-04 05:49 | REP ---
INDICATION: OTHER NONSPECIFIC ABNORMAL FINDING OF LUNG FIELD COMPARISON: 11/21/2019 TECHNIQUE: Axial noncontrast images from the thoracic inlet to the upper abdomen with coronal and sagittal reformations. This CT examination was performed using the following dose reduction techniques: Automated exposure control, adjustment of mA and/or kv according to the patient's size, and use of iterative reconstruction technique. FINDINGS: Moderate emphysematous changes with scattered scarring and few scattered stable nodules as compared with prior examinations including 08/16/2017. The 7 mm right upper lobe nodule identified on 08/21/2019 appears to be a small cluster of 2 mm nodules which are essentially unchanged in appearance when allowing for variation in technique. The previously identified right upper lobe nodule measuring 10 mm on 08/21/2019 examination is essentially unchanged in its appearance but may represent small cluster of vessels adjacent to each other due to surrounding emphysematous changes and scarring. No further new suspicious nodules or mass lesions are appreciated. No effusion. No pneumothorax. Chronic bronchiectasis noted. IMPRESSION: 1. Moderate emphysematous changes with scattered scarring and bronchiectasis similar to prior examination. 2. Stable nodules identified dating through 2018. 3. New or nodules identified on 08/21/2019 remain essentially stable and may actually represent small cluster of adjacent vessels secondary to surrounding emphysematous disease and scarring. Consider follow-up examination at 6 months to confirm stability. <Electronically signed by Иван Mcmahon > 07/04/20 [id number]
== END ==
LOC: M RAD 15:49
PROVIDERS: ATTEND Internal Medicine Pulmonary Disease
DX: R91.8 Other nonspecific abnormal finding of lung field (principal)

== ENCOUNTER → 2020-08-21 | Outpatient (REF) | payer MEDICARE, OTHER ==
[~2020-08-21] MED LIST changes: +MONT10TA10 PO; -MONT5TAB2 PO
== END ==
LOC: M WUC 09:57
PROVIDERS: ATTEND Physician Assistant
DX: S51.802A Unspecified open wound of left forearm, initial encounter (principal); W18.30XA Fall on same level, unspecified, initial encounter; Y92.009 Unspecified place in unspecified non-institutional (private) residence as the place of occurrence of the external cause

== ENCOUNTER → 2020-09-01 | Outpatient (CLI) | payer MEDICARE, OTHER ==
--- NOTE | 2020-09-01 17:45 | REP ---
INDICATION: DIZZINESS GIDDINESS. COMPARISON: Bilateral duplex carotid ultrasound dated 11/28/2013. TECHNIQUE: Bilateral carotid artery duplex ultrasound. FINDINGS: Peak flow velocities: Right left Internal carotid artery 85 cm/sec 72.6 cm/sec Int. Carotid diastolic 35.1 cm/sec 21.9 cm/sec External carotid artery 79.7 cm/sec 51.7 cm/sec Common carotid artery 89.6 cm/sec 89.4 cm/sec ICA-CCA ratio 0.9 0.8 There is no visible atheromatous plaque on the right or the left. Peak flow velocities are normal bilaterally. IMPRESSION: There is no stenosis on the right or the left. There is no change from the prior study. <Electronically signed by Michael Joseph > 09/01/20 [id number]
== END ==
LOC: M RAD 14:33
PROVIDERS: ATTEND Physician Assistant
DX: R42 Dizziness and giddiness (principal)

== ENCOUNTER → 2021-01-05 | Outpatient (CLI) | payer MEDICARE, OTHER ==
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
== END ==
LOC: M PLAIMG 10:33
PROVIDERS: ATTEND Internal Medicine Pulmonary Disease
DX: R91.8 Other nonspecific abnormal finding of lung field (principal)

== ENCOUNTER → 2021-02-02 | Outpatient (CLI) | payer MEDICARE, OTHER ==
--- NOTE | 2021-02-02 15:58 | REP ---
INDICATION: DIAGNOSING LUNG NODULE R91.1. COMPARISON: Comparison chest CT studies are from December 18, 2019 and January 05, 2021. There is also a chest CT study from July 03, 2020.. TECHNIQUE: Fifty-two minutes following the intravenous injection of a 8.62 mCi dose of F-18 FDG, three-dimensional PET scintigraphy is acquired from the skull base to the proximal thighs. Triplanar noncontrast CT scanning is acquired through the same anatomic range for attenuation correction, and image registration with scan parameters optimized to minimize radiation exposure to the patient. PET scintigraphy and CT datasets were fused and displayed on a workstation with multiplanar and projection display capability. FINDINGS: Head and neck soft tissues are unremarkable. In the thorax, the recently identified new nodule in the left upper lobe posterior segment has significantly improved from the comparison chest CT study dated 05 January 2021. This rapid improvement is consistent with inflammatory disease. There is no hypermetabolic uptake here, maximum SUV value 0.95. However, the 2 previously identified right upper lobe nodules are both hypermetabolic. The more cephalic of the 2 demonstrates maximum SUV value of 3.28. The slightly inferior of the 2 nodules is more avid and demonstrates maximum SUV value of 4.37. Both of these show spiculated morphology and must be considered suspicious. No other abnormal hypermetabolic uptake is seen within the chest. There is no hilar or mediastinal hypermetabolic uptake noted. No abnormal adrenal uptake is seen. In the abdomen and pelvis, normal FDG distribution is seen. No abnormal abdominal or pelvic hypermetabolic uptake focus is seen. No abnormal skeletal focus is seen. IMPRESSION: The recently identified new nodule in the left upper lobe is nearly resolved morphologically and does not show hypermetabolic uptake. This consistent with an inflammatory lesion. However, the 2 previously noted right upper lobe spiculated nodules are both hypermetabolic. Malignancy cannot be excluded in these 2 right upper lobe nodules. <Electronically signed by Alexis Joyce > 02/02/21 [id number]
== END ==
LOC: M PLARAD 13:37
PROVIDERS: ATTEND Internal Medicine Pulmonary Disease
DX: R91.1 Solitary pulmonary nodule (principal)
CPT/HCPCS: 78815; A9552

== ENCOUNTER → 2021-02-09 | Outpatient (CLI) | payer MEDICARE, OTHER ==
[2021-02-09 16:23] LABS: BASO # 0.1 10^3/uL (0.0-0.2); BASO % 0.7 % (0.0-1.0); EOS # 0.2 10^3/uL (0.0-0.5); EOS % 2.1 % (0.0-3.0); HEMATOCRIT 42.1 % (42.0-52.0); HEMOGLOBIN 13.7 g/dl (13.5-17.5); LYMPH % 24.5 % (24.0-44.0); MEAN CORPUSCULAR HEMOGLOBIN 29.8 pg (27.0-33.0); MEAN CORPUSCULAR HGB CONC 32.5 g/dl (32.0-36.5); MEAN CORPUSCULAR VOLUME 91.5 fl (80.0-96.0); MONO # 0.8 10^3/uL (0.0-0.8); MONO % 9.3 % (2.0-8.0); NEUTROPHILS # 5.1 10^3/uL (1.5-8.5); NEUTROPHILS % 62.9 % (36.0-66.0); PLATELET COUNT, AUTOMATED 205 10^3/uL (150-450); WHITE BLOOD COUNT 8.1 10^3/uL (4.0-10.0)
[2021-02-09 16:51] LABS: ALBUMIN 3.1 GM/DL (3.2-5.2); BILIRUBIN,TOTAL 0.5 MG/DL (0.2-1.0); CALCIUM LEVEL 8.5 MG/DL (8.8-10.2); CREATININE FOR GFR 1.63 MG/DL (0.70-1.30); GLOMERULAR FILTRATION RATE 43.7 (>42); POTASSIUM SERUM 4.1 MEQ/L (3.5-5.1)
== END ==
LOC: M WUC 11:33
PROVIDERS: ATTEND Internal Medicine Cardiovascular Disease
DX: I77.810 Thoracic aortic ectasia (principal); I49.3 Ventricular premature depolarization; I27.81 Cor pulmonale (chronic); I11.9 Hypertensive heart disease without heart failure; R06.02 Shortness of breath

== ENCOUNTER → 2021-03-17 | Outpatient (REF) | payer MEDICARE, OTHER | LOC: M LAB REF 16:11 | PROVIDERS: ATTEND Physician Assistant | DX: D49.2 Neoplasm of unspecified behavior of bone, soft tissue, and skin (principal); C44.319 Basal cell carcinoma of skin of other parts of face | CPT/HCPCS: 11102; 17000; 17003; 88305; G0463 ==

== ENCOUNTER → 2021-04-23 | Outpatient (REF) | payer MEDICARE, OTHER | LOC: M LAB REF 17:18 | PROVIDERS: ATTEND Nurse Practitioner Family | DX: E83.42 Hypomagnesemia (principal) ==

== ENCOUNTER → 2021-05-18 | Outpatient (CLI) | payer MEDICARE, OTHER ==
[~2021-05-18] MED LIST changes: +ADV250INH INH; +CLOB5CR TOP; +FLEC50HA PO; -MONT10TA10 PO; +MONT10TA97 PO; +OMEGCAP4 PO; +PROAAER10 INH; +VITMTA PO
[2021-05-18 14:16] LABS: ALBUMIN 3.4 GM/DL (3.2-5.2); CALCIUM LEVEL 9.1 MG/DL (8.8-10.2); CREATININE FOR GFR 1.51 MG/DL (0.70-1.30); GLOMERULAR FILTRATION RATE 47.7 (>42); PHOSPHORUS LEVEL 2.7 MG/DL (2.5-4.9); POTASSIUM SERUM 4.4 MEQ/L (3.5-5.1)
[2021-05-21 23:09] LABS: FLECAINIDE LEVEL 0.12 ug/mL (0.20-1.00)
== END ==
LOC: M PLALAB 10:40
PROVIDERS: ATTEND Internal Medicine Cardiovascular Disease
DX: I49.3 Ventricular premature depolarization (principal)

== ENCOUNTER → 2021-05-27 | Outpatient (REF) | payer MEDICARE, OTHER | LOC: M LAB REF 17:27 | PROVIDERS: ATTEND Dermatology | DX: C44.629 Squamous cell carcinoma of skin of left upper limb, including shoulder (principal); L57.8 Other skin changes due to chronic exposure to nonionizing radiation | CPT/HCPCS: 11102; 13132; 17311; 88305; G0463 ==

== ENCOUNTER → 2021-06-01 | Outpatient (CLI) | payer MEDICARE, OTHER ==
[~2021-06-01] MED LIST changes: -ADV250INH INH; -CLOB5CR TOP; -FLEC50HA PO; +MONT10TA10 PO; -MONT10TA97 PO; -OMEGCAP4 PO; -PROAAER10 INH; -VITMTA PO
--- NOTE | 2021-06-01 13:08 | REP ---
INDICATION: ABNORMAL FINDING OF LUNG FIELD COMPARISON: 01/05/2021 TECHNIQUE: Axial noncontrast images from the thoracic inlet to the upper abdomen with coronal and sagittal reformations. This CT examination was performed using the following dose reduction techniques: Automated exposure control, adjustment of mA and/or kv according to the patient's size, and use of iterative reconstruction technique. FINDINGS: Previously noted spiculated density in the left upper lobe has resolved. A 1.5 cm spiculated lesion in the right upper lobe (series 201; image 35) has increased in size from prior examination and now demonstrates a more solid appearance suspicious for active disease. Remainder of the examination demonstrates advanced emphysematous changes with scattered scarring and few scattered stable nodules no effusion. No pneumothorax. Evaluation for adenopathy is limited due to the lack of contrast but. Tracheobronchial tree is patent. Mediastinum demonstrates stable atherosclerotic changes to the thoracic aorta and coronary arteries along with pacemaker in satisfactory stable position. IMPRESSION: 1. Nodule in the right upper is increased from prior examination and demonstrated hypermetabolic activity on recent PET-CT dated 02/02/2021. Correlation and further investigation is required. Consider biopsy and or short-term follow-up chest CT. 2. Previously noted left upper lobe density has resolved. Underlying chronic emphysematous changes and scattered scarring along with small scattered stable nodules remain unchanged. <Electronically signed by Иван Mcmahon > 06/01/21 [id number]
== END ==
LOC: M RAD 12:37
PROVIDERS: ATTEND Internal Medicine Pulmonary Disease
DX: R91.8 Other nonspecific abnormal finding of lung field (principal)

== ENCOUNTER → 2021-06-16 | Outpatient (REF) | payer MEDICARE, OTHER ==
[~2021-06-16] MED LIST changes: +ADV250INH INH; +CLOB5CR TOP; +FLEC50HA PO; +OMEGCAP4 PO; +PROAAER10 INH; +VITMTA PO
== END ==
LOC: M LAB REF 08:23
PROVIDERS: ATTEND Physician Assistant
DX: D22.4 Melanocytic nevi of scalp and neck (principal); C44.629 Squamous cell carcinoma of skin of left upper limb, including shoulder

== ENCOUNTER → 2021-06-18 | Outpatient (CLI) | payer MEDICARE, OTHER ==
[2021-06-18 23:23] LABS: PLATELET COUNT, AUTOMATED 226 10^3/uL (150-450)
[2021-06-18 23:32] LABS: INR 0.98; PROTHROMBIN TIME 13.4 SECONDS (12.7-14.5)
== END ==
LOC: M WUC 15:54
PROVIDERS: ATTEND Internal Medicine Pulmonary Disease
DX: R91.8 Other nonspecific abnormal finding of lung field (principal)

== ENCOUNTER → 2021-06-22 | Outpatient (REF) | payer MEDICARE, OTHER | LOC: M LAB REF 12:20 | PROVIDERS: ATTEND Internal Medicine Pulmonary Disease | DX: R91.8 Other nonspecific abnormal finding of lung field (principal) ==

== ENCOUNTER 2021-06-24 07:08 | Day surgery (SDC) | payer MEDICARE, OTHER ==
[~2021-06-24] VITALS: Ht 180.3 cm; Wt 80.5 kg
[~2021-06-24 07:08] MED LIST changes: +ALBUTEROL SULFATE 2.5 MG/0.5 ML INH NEB SOLN INH ONE; +LIDOCAINE 4% INJ 5ML AMP NEB ONE; +LR 1,000 ML IV ONE; -MONT10TA10 PO; +MONT10TA97 PO
[2021-06-24] MEDS ORDERED: fentaNYL 100 MCG/2 ML INJECTION (J3010) As Ordered ONE (07:55)
[2021-06-24] MEDS ORDERED: MIDAZOLAM INJ 2MG/2ML VIAL (J2250 PER 1MG) As Ordered ONE (07:55)
[2021-06-24] MEDS ORDERED: dexameTHASONE 4 MG/ML 1ML VIAL (J1100 PER 1MG) As Ordered ONE (07:55)
[2021-06-24] MEDS ORDERED: SUGAMMADEX SODIUM 500 MG/5 ML VIAL (BRIDION) As Ordered ONE (07:55)
[2021-06-24] MEDS ORDERED: ONDANSETRON 4MG/2ML VIAL As Ordered ONE (07:55)
[2021-06-24] MEDS ORDERED: LIDOCAINE 2% 100MG/5ML SDV (FOR ANES.) As Ordered ONE (07:55)
[2021-06-24] MEDS ORDERED: ROCURONIUM BROMIDE 50 MG/5 ML VIAL As Ordered ONE (07:56)
[2021-06-24] MEDS ORDERED: propofoL 200 MG/20 ML VIAL As Ordered ONE (07:56)
[2021-06-24] MEDS ORDERED: CETACAINE SPRAY 5GM As Ordered ONE (09:09)
[2021-06-24] MEDS ORDERED: EPINEPHrine 1MG/10ML SYRINGE 1.5IN As Ordered ONE (09:09)
[2021-06-24] MEDS ORDERED: PHENYLephrine 500MCG 5ML (100MCG/ML) SYRINGE As Ordered ONE (09:21)
[2021-06-24] MEDS ORDERED: ePHEDrine SULFATE 25 MG/5 ML(5MG/ML) SYRINGE As Ordered ONE (09:21)
[2021-06-24] MEDS ORDERED: ACETAMINOPHEN 1000MG 100ML IV BTL (OFIRMEV) (J0131 PER 10MG) As Ordered ONE (09:41)
[2021-06-24] MEDS ORDERED: THROMBIN SOLN 5,000 UNITS VIAL As Ordered ONE (10:27)
[2021-06-24] MEDS ORDERED: HYDROMORPHONE HCL 0.5 MG/ 0.5 ML SYRINGE (J1170 PER 1) IV PRN (10:35)
[2021-06-24] MEDS ORDERED: oxyCODONE 5MG TAB PO PRN (10:35)
[2021-06-24] MEDS ORDERED: LR 1,000 ML IV SCH (10:35)
[2021-06-24] MEDS ORDERED: ONDANSETRON 4MG/2ML VIAL IV PRN (10:35)
[2021-06-24] MEDS ORDERED: fentaNYL 100 MCG/2 ML INJECTION (J3010) IV PRN (10:35)
[2021-06-24 12:20] VITALS: BP 124/73
== END 2021-06-24 12:30 | disposition home or self-care (01) ==
LOC: M SDC 07:08
PROVIDERS: ATTEND Internal Medicine Pulmonary Disease
DX: C34.11 Malignant neoplasm of upper lobe, right bronchus or lung (principal); R55 Syncope and collapse; I10 Essential (primary) hypertension; Z95.0 Presence of cardiac pacemaker; F17.218 Nicotine dependence, cigarettes, with other nicotine-induced disorders; Z85.46 Personal history of malignant neoplasm of prostate; J43.1 Panlobular emphysema; Z79.51 Long term (current) use of inhaled steroids; Z79.899 Other long term (current) drug therapy; Z88.0 Allergy status to penicillin; Z88.2 Allergy status to sulfonamides
CPT/HCPCS: 31624; 31626; 31628; 71045; 76000; 87070; 87102; 87116; 87186; 87205; 87206; 87426; 88108; 88305; 88313; 88341; 88342; A4648; J0131; J1100; J2250; J2370; J2405; J3010; S2900

== ENCOUNTER → 2021-07-14 | Outpatient (REF) | payer MEDICARE, OTHER ==
[~2021-07-14] MED LIST changes: -ALBUTEROL SULFATE 2.5 MG/0.5 ML INH NEB SOLN INH ONE; -LIDOCAINE 4% INJ 5ML AMP NEB ONE; -LR 1,000 ML IV ONE
== END ==
LOC: M SFHCDERM 11:26
PROVIDERS: ATTEND Dermatology
DX: D04.62 Carcinoma in situ of skin of left upper limb, including shoulder (principal)

== ENCOUNTER → 2021-07-14 | Outpatient (REF) | payer MEDICARE, OTHER | LOC: M LAB REF 13:45 | PROVIDERS: ATTEND Dermatology | DX: D23.5 Other benign neoplasm of skin of trunk (principal) | CPT/HCPCS: 11104; 17000; 87070; 87077; 87186; 87205; 88305; G0463 ==

== ENCOUNTER → 2021-07-21 | Outpatient (CLI) | payer MEDICARE, OTHER | LOC: M PLARAD 11:59 | PROVIDERS: ATTEND Surgery | DX: C34.11 Malignant neoplasm of upper lobe, right bronchus or lung (principal); Z97.8 Presence of other specified devices | CPT/HCPCS: 78815; A9552 ==

== ENCOUNTER → 2021-07-23 | Outpatient (CLI) | payer MEDICARE, OTHER | LOC: M ONCR 12:49 | PROVIDERS: ATTEND General Practice | DX: C34.11 Malignant neoplasm of upper lobe, right bronchus or lung (principal); F17.210 Nicotine dependence, cigarettes, uncomplicated; J44.9 Chronic obstructive pulmonary disease, unspecified; Z88.0 Allergy status to penicillin; Z88.2 Allergy status to sulfonamides; Z79.899 Other long term (current) drug therapy ==

== ENCOUNTER → 2021-09-08 | Outpatient (CLI) | payer MEDICARE, OTHER | LOC: M CARPUL 13:20 | PROVIDERS: ATTEND Internal Medicine Cardiovascular Disease | DX: I77.810 Thoracic aortic ectasia (principal) ==

== ENCOUNTER → 2022-01-15 | Outpatient (REF) | payer MEDICARE, OTHER | LOC: M SFHCDERM 16:55 | PROVIDERS: ATTEND Dermatology | DX: D04.62 Carcinoma in situ of skin of left upper limb, including shoulder (principal) ==

== ENCOUNTER → 2022-02-18 | Outpatient (CLI) | payer MEDICARE, OTHER | LOC: M RAD 13:10 | PROVIDERS: ATTEND Internal Medicine Pulmonary Disease | DX: Z85.118 Personal history of other malignant neoplasm of bronchus and lung (principal) ==

== ENCOUNTER → 2022-08-25 | Outpatient (CLI) | payer MEDICARE, OTHER | LOC: M PLAIMG 10:06 | PROVIDERS: ATTEND Physician Assistant | DX: C34.11 Malignant neoplasm of upper lobe, right bronchus or lung (principal); J44.9 Chronic obstructive pulmonary disease, unspecified ==

== ENCOUNTER → 2022-09-02 | Outpatient (CLI) | payer MEDICARE, OTHER ==
[~2022-09-02] MED LIST changes: +E-Z-GAS II EFFERVESCENT PACKET (SODIUM BICARB./CITRIC ACID/SIMETHICONE) As Ordered ONE; +E-Z-HD 98% w/w 340GM SUSP BTL As Ordered ONE; +E-Z-PAQUE 96% w/w SUSP 176GM BTL As Ordered ONE
== END ==
LOC: M RAD 08:13
PROVIDERS: ATTEND Family Medicine
DX: R13.10 Dysphagia, unspecified (principal)

== ENCOUNTER → 2022-09-21 | Outpatient (CLI) | payer MEDICARE, OTHER ==
[~2022-09-21] MED LIST changes: +ARTIDRO4 OU; -E-Z-GAS II EFFERVESCENT PACKET (SODIUM BICARB./CITRIC ACID/SIMETHICONE) As Ordered ONE; -E-Z-HD 98% w/w 340GM SUSP BTL As Ordered ONE; -E-Z-PAQUE 96% w/w SUSP 176GM BTL As Ordered ONE; -POLYOPD OU
== END ==
LOC: M PLAIMG 11:04
PROVIDERS: ATTEND Psychiatry & Neurology Neurology
DX: G31.84 Mild cognitive impairment of uncertain or unknown etiology (principal); R41.1 Anterograde amnesia; R26.81 Unsteadiness on feet

== ENCOUNTER → 2022-10-26 | Outpatient (REF) | payer MEDICARE, OTHER | LOC: M SFHCDERM 18:10 | PROVIDERS: ATTEND Nurse Practitioner Family | DX: D23.71 Other benign neoplasm of skin of right lower limb, including hip (principal) ==

== ENCOUNTER → 2023-03-02 | Outpatient (CLI) | payer MEDICARE, OTHER | LOC: M PLAIMG 13:25 | PROVIDERS: ATTEND Internal Medicine Pulmonary Disease | DX: Z85.118 Personal history of other malignant neoplasm of bronchus and lung (principal); Z90.2 Acquired absence of lung [part of]; J43.9 Emphysema, unspecified ==

== ENCOUNTER → 2023-03-03 | Outpatient (CLI) | payer MEDICARE, OTHER | LOC: M RAD 10:58 | PROVIDERS: ATTEND Family Medicine | DX: I73.9 Peripheral vascular disease, unspecified (principal) ==

== ENCOUNTER → 2023-03-03 | Outpatient (CLI) | payer MEDICARE, OTHER ==
[2023-03-03 15:14] LABS: FOLATE > 24.0 NG/ML (>5.4)
[2023-03-03 15:15] LABS: VITAMIN B12 LEVEL 694 PG/ML (211-911)
[2023-03-05 18:59] LABS: RHEUMATOID FACTOR QUANT < 3.5 IU/ML (<14)
== END ==
LOC: M LAB 11:02
PROVIDERS: ATTEND Psychiatry & Neurology Neurology
DX: E03.8 Other specified hypothyroidism (principal); R41.3 Other amnesia; G62.9 Polyneuropathy, unspecified

== ENCOUNTER → 2023-07-13 | Outpatient (CLI) | payer MEDICARE, OTHER ==
[~2023-07-13] MED LIST changes: +IRBE300T25 PO; -IRBE300T7 PO
== END ==
LOC: M WUC 12:31
PROVIDERS: ATTEND Nurse Practitioner Family
DX: M79.641 Pain in right hand (principal)

== ENCOUNTER → 2023-09-15 | Outpatient (CLI) | payer MEDICARE, OTHER | LOC: M PLAIMG 09:06 | PROVIDERS: ATTEND Internal Medicine Pulmonary Disease | DX: Z85.118 Personal history of other malignant neoplasm of bronchus and lung (principal); Z90.2 Acquired absence of lung [part of] ==

== ENCOUNTER → 2023-12-26 | Outpatient (CLI) | payer MEDICARE, OTHER | LOC: M PLAIMG 09:54 | PROVIDERS: ATTEND Physician Assistant | DX: I77.810 Thoracic aortic ectasia (principal); I27.20 Pulmonary hypertension, unspecified; I08.1 Rheumatic disorders of both mitral and tricuspid valves; Z95.0 Presence of cardiac pacemaker ==

== ENCOUNTER → 2024-03-21 | Outpatient (CLI) | payer MEDICARE, OTHER ==
[~2024-03-21] MED LIST changes: +BARIUM SULFATE 700 MG TABLET (E-Z-DISK) As Ordered ONE; +E-Z-PAQUE 96% w/w SUSP 176GM BTL As Ordered ONE; +VARIBAR NECTAR 40% w/v 240ML SUSP BTL As Ordered ONE; +VARIBAR PUDDING 40% w/v 230ML TUBE As Ordered ONE
== END ==
LOC: M RAD 11:35
PROVIDERS: ATTEND Family Medicine
DX: R13.10 Dysphagia, unspecified (principal)

== ENCOUNTER → 2024-04-23 | Outpatient (CLI) | payer MEDICARE, OTHER ==
[~2024-04-23] MED LIST changes: -BARIUM SULFATE 700 MG TABLET (E-Z-DISK) As Ordered ONE; -E-Z-PAQUE 96% w/w SUSP 176GM BTL As Ordered ONE; -VARIBAR NECTAR 40% w/v 240ML SUSP BTL As Ordered ONE; -VARIBAR PUDDING 40% w/v 230ML TUBE As Ordered ONE
== END ==
LOC: M PLAIMG 10:06
PROVIDERS: ATTEND Internal Medicine Pulmonary Disease
DX: J44.9 Chronic obstructive pulmonary disease, unspecified (principal); Z85.118 Personal history of other malignant neoplasm of bronchus and lung; Z90.2 Acquired absence of lung [part of]

== ENCOUNTER → 2024-05-04 | Outpatient (CLI) | payer MEDICARE, OTHER | LOC: M RAD 13:55 | PROVIDERS: ATTEND Nurse Practitioner Family | DX: N17.9 Acute kidney failure, unspecified (principal) ==

== ENCOUNTER → 2025-01-19 | Outpatient (REF) | payer MEDICARE, OTHER ==
[~2025-01-19] MED LIST changes: -ADV250INH INH; +ADVA1AER9 INH; +ALBU8.5H INH; +FLON1SPR; +THERTAB52 PO
[2025-01-27 00:37] LABS: CALPROTECTIN STOOL 34 mcg/g (<50)
[2025-01-27 04:28] LABS: PANCREATIC ELASTASE STOOL 743 mcg/g (>200)
== END ==
LOC: M LAB REF 14:00
PROVIDERS: ATTEND Internal Medicine Gastroenterology
DX: R19.7 Diarrhea, unspecified (principal); Z86.0100 Personal history of colon polyps, unspecified

== ENCOUNTER 2025-01-30 09:39 | Day surgery (SDC) | payer MEDICARE, OTHER ==
[~2025-01-30] VITALS: Ht 180.3 cm; Wt 76.6 kg
[~2025-01-30 09:39] MED LIST changes: +LIDOCAINE 2% 100 MG/5 ML SDV (FOR ANES.) As Ordered ONE
[2025-01-30] MEDS ORDERED: PHENYLephrine 500MCG 5ML (100MCG/ML) SYRINGE As Ordered ONE (11:33)
[2025-01-30 11:56] VITALS: TEMP 97
[2025-01-30 12:21] VITALS: BP 140/77; O2SAT 98
== END 2025-01-30 12:27 | disposition home or self-care (01) ==
LOC: M OPP 09:39
PROVIDERS: ATTEND Internal Medicine Gastroenterology
DX: D12.6 Benign neoplasm of colon, unspecified (principal); K57.30 Diverticulosis of large intestine without perforation or abscess without bleeding; K64.0 First degree hemorrhoids; Z86.0100 Personal history of colon polyps, unspecified; Z95.0 Presence of cardiac pacemaker; Z88.0 Allergy status to penicillin; Z88.2 Allergy status to sulfonamides; Z79.51 Long term (current) use of inhaled steroids; Z79.899 Other long term (current) drug therapy; J44.9 Chronic obstructive pulmonary disease, unspecified; F17.200 Nicotine dependence, unspecified, uncomplicated
CPT/HCPCS: 45385; 88305; J2371

== ENCOUNTER → 2025-04-02 | Outpatient (REF) | payer MEDICARE, OTHER ==
[~2025-04-02] MED LIST changes: -LIDOCAINE 2% 100 MG/5 ML SDV (FOR ANES.) As Ordered ONE
== END ==
LOC: M SFHCDERM 18:25
PROVIDERS: ATTEND Physician Assistant
DX: L82.0 Inflamed seborrheic keratosis (principal)

== ENCOUNTER → 2025-04-17 | Outpatient (CLI) | payer MEDICARE, OTHER | LOC: M PLAIMG 11:11 | PROVIDERS: ATTEND Internal Medicine Pulmonary Disease | DX: R91.8 Other nonspecific abnormal finding of lung field (principal) ==

== ENCOUNTER → 2025-05-06 | Day surgery (SDC) | payer MEDICARE, OTHER ==
[~2025-05-06] VITALS: Ht 180.3 cm; Wt 76.0 kg
== END | disposition home or self-care (01) ==
LOC: M OPP 12:29
PROVIDERS: ATTEND Internal Medicine Gastroenterology
DX: D49.0 Neoplasm of unspecified behavior of digestive system (principal); D12.6 Benign neoplasm of colon, unspecified; K56.690 Other partial intestinal obstruction; K57.30 Diverticulosis of large intestine without perforation or abscess without bleeding; K64.0 First degree hemorrhoids; Z86.03 Personal history of neoplasm of uncertain behavior; Z95.0 Presence of cardiac pacemaker; Z88.0 Allergy status to penicillin; Z88.2 Allergy status to sulfonamides; Z79.51 Long term (current) use of inhaled steroids; Z79.899 Other long term (current) drug therapy; J44.9 Chronic obstructive pulmonary disease, unspecified; F17.200 Nicotine dependence, unspecified, uncomplicated